=== PATIENT | female | born 1995 | race Caucasian/White ===

== ENCOUNTER 2021-10-01 19:17 | Emergency (ER) | payer MEDICAID, OTHER | END 2021-10-01 21:27 | disposition short-term general hospital (02) | LOC: ERS 19:17 | DX: O26.893 Other specified pregnancy related conditions, third trimester (principal); N89.8 Other specified noninflammatory disorders of vagina; R10.84 Generalized abdominal pain; Z3A.30 30 weeks gestation of pregnancy | CPT/HCPCS: 76805 ==